=== PATIENT | male | born 1980 | race Caucasian/White ===

== ENCOUNTER 2018-02-17 21:36 | Emergency (ER) | payer BC, OTHER ==
[~2018-02-17] VITALS: Ht 193 cm; Wt 83.9 kg
[2018-02-17] MEDS ORDERED: TETRACAINE HCL 0.5% OPTH(EYE) SOLN 4ML ONE (23:34)
[2018-02-17] MEDS ORDERED: TETRACAINE HCL 0.5% OPTH(EYE) SOLN 4ML RIGHTEYE ONE (23:45)
[2018-02-18] MEDS ORDERED: GENTAMICIN OPTH sol 0.3% 5ml RIGHTEYE ONE (00:15)
[2018-02-18] MEDS ORDERED: TETANUS-DIPTH-ACEL PERTUSSIS 0.5ML SYRG IM ONE (00:15)
[2018-02-18 00:34] VITALS: BP 115/66
== END 2018-02-18 00:36 | disposition home or self-care (01) ==
LOC: ER 21:36
DX: T15.01XA Foreign body in cornea, right eye, initial encounter (principal); X58.XXXA Exposure to other specified factors, initial encounter; Y93.89 Activity, other specified; Y92.89 Other specified places as the place of occurrence of the external cause; Y99.8 Other external cause status
CPT/HCPCS: 90471; 90715